=== PATIENT | female | born 1930 | race Two or more races ===

== ENCOUNTER 2017-10-28 20:09 | Emergency (ER) | payer MEDICARE, OTHER ==
[~2017-10-28] VITALS: Ht 170.2 cm; Wt 86.2 kg
--- NOTE | 2017-10-28 20:30 | NUR ---
PT PRESENTED TO THE ER WITH A C/O SOB. PT STATED THAT SHE HAS PAIN WITH INSPIRATION AND COUGH. PT IS ON THE MONITOR AND CONTINUOUS PU LSE OX.
[2017-10-28] MEDS ORDERED: ALBUTEROL FS 2.5 MG/3 ML VIAL.NEB ONE (20:49)
[2017-10-28] MEDS ORDERED: IBUPROFEN 400 MG TABLET PO ONE (21:00)
[2017-10-28] MEDS ORDERED: ALBUTEROL FS 2.5 MG/3 ML VIAL.NEB NEB ONE (21:00)
[2017-10-28] MEDS ORDERED: IBUPROFEN 400 MG TABLET ONE (21:05)
--- NOTE | 2017-10-28 21:08 | NUR ---
BREATHING TX FINISHED. PT 98% ON RA. PT STATED THAT SHE FEELS MUCH BETTER.
[2017-10-28 21:32] VITALS: BP 136/66
--- NOTE | 2017-10-28 21:32 | NUR ---
Patient discharged to home in stable condition. Written and verbal after care instructions given. Patient verbalizes understanding of instruction AND RX. PT'S DAUGHTER IS TAKING THE PT HOME. VSS. PT AMBULATED OUT WITH A STEADY GAIT.
== END 2017-10-28 21:33 | disposition home or self-care (01) ==
LOC: ER 20:20
DX: J32.9 Chronic sinusitis, unspecified (principal); J40 Bronchitis, not specified as acute or chronic; I10 Essential (primary) hypertension; Z88.0 Allergy status to penicillin
CPT/HCPCS: 71010; 94640; 99283; A4606; Z7610